=== PATIENT | male | born 1970 | race Caucasian/White ===

== ENCOUNTER 2020-09-08 06:00 | Day surgery (SDC) | payer MEDICAID, SELFPAY ==
[~2020-09-08] VITALS: Ht 167.6 cm; Wt 88.5 kg
[2020-09-08] MEDS ORDERED: DEXAMETHASONE SOD PHOSPHATE 4 MG/ML VIAL IVP ONE (07:21)
[2020-09-08] MEDS ORDERED: fentaNYL CITRATE 250 MCG/5 ML AMP IV ONE (07:21)
[2020-09-08] MEDS ORDERED: LIDOCAINE 2%, 20 ML MDV INJ ONE (07:21)
[2020-09-08] MEDS ORDERED: SUGAMMADEX SODIUM 200 MG/2 ML VIAL IV ONE (07:21)
[2020-09-08] MEDS ORDERED: ROCURONIUM BROMIDE 10 MG/ML (ZEMURON) IV ONE (07:21)
[2020-09-08] MEDS ORDERED: MIDAZOLAM HCL 5 MG/5 ML VIAL IVP ONE (07:21)
[2020-09-08] MEDS ORDERED: ISOFLURANE 15 MIN GAS INH ONE (07:21)
[2020-09-08] MEDS ORDERED: ONDANSETRON HCL 4 MG/2 ML VIAL IVP ONE (07:21)
[2020-09-08] MEDS ORDERED: OXYMETAZOLINE HCL 0.05% NASAL SPRAY NS ONE (07:21)
[2020-09-08] MEDS ORDERED: KETOROLAC TROMETHAMINE 30 MG VIAL IVP ONE (07:21)
[2020-09-08] MEDS ORDERED: WATER FOR IRRIGATION,STERILE 1,000 ML IRRIG.SOLN IR ONE (07:21)
[2020-09-08] MEDS ORDERED: NS IRRIG SOLN 1000 ML IR ONE (07:21)
[2020-09-08] MEDS ORDERED: PROPOFOL 200MG/ 20ML VIAL (DIPRIVAN) IV ONE (07:21)
[2020-09-08] MEDS ORDERED: LR 1,000 ML IV SCH (08:30)
[2020-09-08] MEDS ORDERED: ONDANSETRON HCL 4 MG/2 ML VIAL IVP PRN (08:30)
[2020-09-08] MEDS ORDERED: MIDAZOLAM HCL 2 MG/2 ML VIAL (VERSED) IVP PRN (08:30)
[2020-09-08] MEDS ORDERED: METOCLOPRAMIDE HCL 10 MG/2 ML VIAL IVP PRN (08:30)
[2020-09-08] MEDS ORDERED: MEPERIDINE HCL/PF 25 MG/ML DISP.SYRIN IVP PRN (08:30)
[2020-09-08] MEDS ORDERED: HYDROmorphone 1 MG INJ. 1 MG/ML CARTRIDGE IVP PRN ×2 (08:30)
[2020-09-08 14:32] VITALS: BP_SYST 137
== END 2020-09-08 12:30 | disposition home or self-care (01) ==
LOC: SMU 06:00 → SDS 06:00
PROVIDERS: ATTEND Otolaryngology
DX: J34.89 Other specified disorders of nose and nasal sinuses (principal); K21.9 Gastro-esophageal reflux disease without esophagitis; D38.5 Neoplasm of uncertain behavior of other respiratory organs; J34.2 Deviated nasal septum; J30.1 Allergic rhinitis due to pollen; J32.2 Chronic ethmoidal sinusitis; Z79.899 Other long term (current) drug therapy
CPT/HCPCS: 30140; 30520; 31255; 82962; 88304; 88305; 88311; C1726; C9399; J1100; J1885; J2001; J2250; J2405; J2704; J3010; J7120; U0003

== ENCOUNTER 2020-09-09 00:10 | Emergency (ER) | payer MEDICAID, SELFPAY ==
[~2020-09-09] VITALS: Ht 167.6 cm; Wt 85.7 kg
[2020-09-09 00:10] VITALS: BP_SYST 165
[2020-09-09] MEDS ORDERED: NACL 0.9% 1,000 ML IV ONE (00:30)
[2020-09-09 00:51] LABS: BASOPHILS % (AUTO) 0.4 % (0.0-2.0); HEMATOCRIT 40.7 % (36-54); HEMOGLOBIN 13.8 g/dL (14.0-18.0); LYMPHOCYTES % (AUTO) 18.2 % (20.5-51.5); MEAN CORPUSCULAR HEMOGLOBIN 31 pg (27-31); MEAN CORPUSCULAR HGB CONC 34 % (32-36); MEAN CORPUSCULAR VOLUME 92 fL (79.0-98.0); MONOCYTES # (AUTO) 0.4 K/uL (0.0-1.0); MONOCYTES % (AUTO) 3.4 % (1.7-9.3); NEUTROPHILS # (AUTO) 8.7 K/uL (1.8-7.7); PLATELET COUNT (AUTO) 244 K/uL (130-430); RED BLOOD CELL COUNT(AUTO) 4.41 MIL/uL (4.2-6.2); RED CELL DISTRIBUTION WIDTH 13.3 % (9.0-15.0); WHITE BLOOD COUNT (AUTO) 11.2 K/uL (4.8-10.8)
[2020-09-09 00:55] LABS: ANION GAP 12 (5-15); CALCIUM 8.9 mg/dL (8.4-11.0); CHLORIDE 102 mmol/L (98-107); CREATININE 1.05 mg/dL (0.55-1.30); GLUCOSE 128 mg/dL (70-99); POTASSIUM 3.8 mmol/L (3.5-5.1); SODIUM SERUM 139 mmol/L (136-145); UREA NITROGEN, BLOOD 10 mg/dL (8-21)
[2020-09-09 01:06] LABS: ALANINE AMINOTRANSFERASE 39 U/L (12-78); ALBUMIN 3.8 g/dL (3.4-4.8); ASPARTATE AMINOTRANSFERASE 30 U/L (10-37); TOTAL BILIRUBIN 0.7 mg/dL (0.0-1.0)
[2020-09-09 01:09] LABS: GFR AFRICAN AMERICAN 95 mL/min (>90)
[2020-09-09] MEDS ORDERED: IOHEXOL 350 mgI/mL, 150 ML INFUS..BTL IV ONE (01:27)
[2020-09-09] MEDS ORDERED: DIPHENHYDRAMINE INJ 50 MG/ML VIAL IVP ONE (02:00)
[2020-09-09] MEDS ORDERED: predniSONE 20 MG TABLET PO ONE (02:00)
[2020-09-09] MEDS ORDERED: HYDROCORTISONE SOD SUCC 100 MG/2 ML VIAL ONE (02:07)
[2020-09-09] MEDS ORDERED: HYDROCORTISONE SOD SUCC 250 MG/2 ML IVP ONE (02:15)
[2020-09-09 04:05] VITALS: BP_SYST 130
== END 2020-09-09 04:05 | disposition home or self-care (01) ==
LOC: SED 00:10
DX: F41.9 Anxiety disorder, unspecified (principal); E78.00 Pure hypercholesterolemia, unspecified; E11.9 Type 2 diabetes mellitus without complications
CPT/HCPCS: 36415; 71045; 71275; 76376; 80053; 82550; 83880; 84484; 85025; 85379; 96361; 96374; 96375; 99285; J1200; J1720; J7030; Q9967 ×2